=== PATIENT | female | born 1960 | race Caucasian/White ===

== ENCOUNTER 2017-08-08 11:34 | Emergency (ER) | payer BC ==
[~2017-08-08] VITALS: Ht 165.1 cm; Wt 73.0 kg
[2017-08-08 12:25] VITALS: BP 122/76
== END 2017-08-08 12:31 | disposition left against medical advice (07) ==
LOC: ER 11:38
DX: Z53.21 Procedure and treatment not carried out due to patient leaving prior to being seen by health care provider (principal)